=== PATIENT | female | born 1940 | race Caucasian/White ===

== ENCOUNTER 2021-01-22 16:38 | Observation (INO) | payer MEDICARE, OTHER ==
[~2021-01-22 16:38] MED LIST: ALBUTEROL2.5 MG/3 M INH; ASPIR 8181 MG PO; AUGMENTIN400 MG/5 M PO; BENADRYL A12.5 MG/5 PO; BETAPACE 80MG T80 MG PO; BETAPACE80 MG PO; CALMOSEPTINE OI71 GM TOP; CEFPODOXIME PR200 MG PO; CEFUROXIME250 MG PO; CYANOCOBAL1000 MCG/1 INJ; D3-20002000 UNIT PO; DOCUSATE SODIU100 MG PO; ELIQUIS5 MG PO; FLECAINIDE ACET50 MG PO; LEVOFLOXACIN250 MG PO; LIPITOR40 MG PO; LORATADINE10 MG PO; LOTREL 2.5-101 EACH PO; MACRODANTIN50 MG PO; MELATONIN10 MG PO; MELATONIN5 MG PO; MIRALAX17 GM PO; MYLICON CHEWABL80 MG PO; NAMENDA XR28 MG PO; OMNICEF 300 MG300 MG PO; PROTONIX40 MG PO; RISPERDAL0.5 MG PO; TUMERIC PO; TYLENOL 325MG325 MG PO; VITAMIN D31000 UNIT PO; ZITHROMAX250 MG PO
[2021-01-22 17:15] LABS: HEMOGLOBIN 12.1 gm/dl (12.3-15.3); RED BLOOD COUNT 3.94 M/UL (4.00-5.10); WHITE BLOOD COUNT 9.6 K/UL (4.5-11.0)
[2021-01-22 17:55] LABS: BUN/CREATININE RATIO 14 (0-10)
[2021-01-23 03:55] LABS: HEMOGLOBIN 11.8 gm/dl (12.3-15.3); RED BLOOD COUNT 3.91 M/UL (4.00-5.10)
[2021-01-23 04:01] LABS: WHITE BLOOD COUNT 14.5 K/UL (4.5-11.0)
[2021-01-23 04:13] LABS: BUN/CREATININE RATIO 16 (0-10)
[2021-01-23] MEDS ORDERED: OMNICEF 300 MG300 MG PO (11:49)
[2021-01-23] MEDS ORDERED: AZITHROMYCIN500 MG PO (11:51)
== END 2021-01-23 13:34 | disposition home or self-care (01) ==
LOC: ER1 16:38 → CDU 21:53
PROVIDERS: Emergency Medicine; ADMIT Internal Medicine
DX: D72.829 Elevated white blood cell count, unspecified (principal); F03.90 Unspecified dementia, unspecified severity, without behavioral disturbance, psychotic disturbance, mood disturbance, and anxiety; I48.20 Chronic atrial fibrillation, unspecified; E44.0 Moderate protein-calorie malnutrition; I69.354 Hemiplegia and hemiparesis following cerebral infarction affecting left non-dominant side; I10 Essential (primary) hypertension; J96.10 Chronic respiratory failure, unspecified whether with hypoxia or hypercapnia; J44.9 Chronic obstructive pulmonary disease, unspecified; E78.5 Hyperlipidemia, unspecified; J90 Pleural effusion, not elsewhere classified; F05 Delirium due to known physiological condition; Z66 Do not resuscitate; Z79.82 Long term (current) use of aspirin; Z87.440 Personal history of urinary (tract) infections; Z87.891 Personal history of nicotine dependence; Z99.81 Dependence on supplemental oxygen
CPT/HCPCS: 0240U; 36415; 36600; 70450; 71045; 71250; 80048; 80053; 81001; 82140; 82550; 82553; 82803; 83605; 83690; 83735; 83874; 83880; 84100; 84439; 84443; 84484; 85025; 85610; 85730; 87040; 87086; 93005; 94760; 96365; 96372; 96374; 99285; G0378; J1650; Q9967

== ENCOUNTER 2021-08-27 14:41 | Emergency (ER) | payer MEDICARE, OTHER ==
[~2021-08-27 14:41] MED LIST changes: +AZITHROMYCIN500 MG PO
[2021-08-27 18:04] LABS: HEMOGLOBIN 12.5 gm/dl (12.3-15.3); RED BLOOD COUNT 4.22 M/UL (4.00-5.10); WHITE BLOOD COUNT 10.3 K/UL (4.5-11.0)
[2021-08-27 18:05] LABS: BUN/CREATININE RATIO 20 (0-10)
[2021-08-27] MEDS ORDERED: IBUPROFEN600 MG PO (20:07)
== END 2021-08-27 21:50 | disposition home or self-care (01) ==
LOC: ER1 14:41
PROVIDERS: Family Medicine
DX: S82.451A Displaced comminuted fracture of shaft of right fibula, initial encounter for closed fracture (principal); S82.251A Displaced comminuted fracture of shaft of right tibia, initial encounter for closed fracture; I10 Essential (primary) hypertension; J44.9 Chronic obstructive pulmonary disease, unspecified; Z99.81 Dependence on supplemental oxygen; F03.90 Unspecified dementia, unspecified severity, without behavioral disturbance, psychotic disturbance, mood disturbance, and anxiety; W19.XXXA Unspecified fall, initial encounter; Y92.009 Unspecified place in unspecified non-institutional (private) residence as the place of occurrence of the external cause
CPT/HCPCS: 29515; 72170; 72192; 73552; 73562; 73590; 80048; 85025; 99284

== ENCOUNTER 2021-12-17 20:11 | Inpatient (IN) | payer MEDICARE, OTHER ==
[~2021-12-17] VITALS: Ht 170.2 cm; Wt 54.4 kg
[~2021-12-17 20:11] MED LIST changes: -D3-20002000 UNIT PO; +IBUPROFEN600 MG PO; +MELATONIN10 M2 PO; -MELATONIN5 MG PO; +VITAMIN D350 MC3 PO
[2021-12-17 21:09] LABS: HEMOGLOBIN 12.2 gm/dl (12.3-15.3); RED BLOOD COUNT 4.03 M/UL (4.00-5.10); WHITE BLOOD COUNT 8.7 K/UL (4.5-11.0)
[2021-12-17 22:18] LABS: BUN/CREATININE RATIO 25 (0-10)
[2021-12-18] MEDS ORDERED: IBU800 MG PO (11:59)
[2021-12-18] MEDS ORDERED: MACROBID 100 M100 M1 PO (12:00)
[2021-12-18] MEDS ORDERED: AZO CRANBERRY1 EACH PO (12:01)
[2021-12-18] MEDS ORDERED: ZINC50 M1 PO (12:01)
[2021-12-18] MEDS ORDERED: CALTRATE 600 +1 EAC1 PO (12:01)
[2021-12-19 06:51] LABS: HEMOGLOBIN 12.5 gm/dl (12.3-15.3); RED BLOOD COUNT 4.14 M/UL (4.00-5.10)
[2021-12-19 07:04] LABS: BUN/CREATININE RATIO 27 (0-10)
[2021-12-20 06:56] LABS: RED BLOOD COUNT 4.06 M/UL (4.00-5.10); WHITE BLOOD COUNT 8.6 K/UL (4.5-11.0)
[2021-12-20 07:22] LABS: BUN/CREATININE RATIO 27 (0-10)
--- NOTE | 2021-12-20 15:54 | NUR ---
PATIENT HAD 15 SECOND RUN OF AFIB WITH RVR IN 130-140'S. PROVIDER NOTIFIED AND STRIPS SENT FROM TELE AND PUT IN THE CHART. WILL CONTINUE TO MONITOR.
[2021-12-20] MEDS ORDERED: ELIQUIS2.5 MG PO (17:06)
[2021-12-20] MEDS ORDERED: AUGMENTIN 875-1 EACH PO (17:06)
[2021-12-21 05:01] LABS: HEMOGLOBIN 12.9 gm/dl (12.3-15.3); RED BLOOD COUNT 4.31 M/UL (4.00-5.10); WHITE BLOOD COUNT 8.8 K/UL (4.5-11.0)
[2021-12-21 06:01] LABS: BUN/CREATININE RATIO 26 (0-10)
== END 2021-12-21 14:12 | disposition home health service (06) | DRG 177 ==
LOC: ER1 20:11 → CDU 12-18 00:46 → MED SURG 4 12-18 00:46 → CDU 12-18 00:46 → MED SURG 4 12-18 16:21
PROVIDERS: Emergency Medicine; Physician Assistant; ADMIT Family Medicine
DX: J69.0 Pneumonitis due to inhalation of food and vomit (principal); J96.21 Acute and chronic respiratory failure with hypoxia; G93.41 Metabolic encephalopathy; Z20.822 Contact with and (suspected) exposure to COVID-19; E87.1 Hypo-osmolality and hyponatremia; E87.2 Acidosis; L97.419 Non-pressure chronic ulcer of right heel and midfoot with unspecified severity; N30.00 Acute cystitis without hematuria; J44.1 Chronic obstructive pulmonary disease with (acute) exacerbation; I48.0 Paroxysmal atrial fibrillation; R13.10 Dysphagia, unspecified; I95.9 Hypotension, unspecified; F03.90 Unspecified dementia, unspecified severity, without behavioral disturbance, psychotic disturbance, mood disturbance, and anxiety; E78.5 Hyperlipidemia, unspecified; D69.6 Thrombocytopenia, unspecified; I10 Essential (primary) hypertension; Z66 Do not resuscitate; M21.371 Foot drop, right foot; Z79.82 Long term (current) use of aspirin; Z79.899 Other long term (current) drug therapy; Z86.73 Personal history of transient ischemic attack (TIA), and cerebral infarction without residual deficits; Z79.01 Long term (current) use of anticoagulants; Z74.01 Bed confinement status; Z90.49 Acquired absence of other specified parts of digestive tract; Z90.710 Acquired absence of both cervix and uterus; Z98.890 Other specified postprocedural states; Z95.818 Presence of other cardiac implants and grafts; Z99.81 Dependence on supplemental oxygen
CPT/HCPCS: 0240U; 36415; 70450; 71045; 71250; 80048; 80053; 81001; 83605; 85025; 87040; 92610; 93005; 94640; 94664; 94760; 96365; 96366; 96372; 96375; 96376; 97110; 97161; 97530; 99285; G0378; J0456; J0696; J1644; J2543; J2920; J7030